=== PATIENT | female | born 1985 | race Caucasian/White ===

== ENCOUNTER 2018-03-20 07:37 | Day surgery (SDC) | payer BC ==
[~2018-03-20] VITALS: Ht 160 cm; Wt 115.6 kg
[2018-03-20] VITALS (8 sets, daily range): BP systolic 108–124; BP diastolic 57–71; PULSE 52–67; TEMP 97.6–98
[2018-03-20] MEDS ORDERED: NORCO 325 MG-51 TAB PO (08:19)
[2018-03-20] MEDS ORDERED: DOXYCYCLINE HY100 MG PO (08:19)
--- NOTE | 2018-03-20 11:40 | NUR ---
TO RM 6 PER CART FROM PACU. ALERT ORIENTED X3 TALKING TO STAFF AND FAMILY. INCISIONS CLEAN DRY INTACT. C/O PAIN 04/20. TEARY EYED. 02 AT 4L PER NC. SATS 99%. RESPIRATIONS EVEN AND NONLABORED. EATING ICE CHIPS.
--- NOTE | 2018-03-20 11:55 | NUR ---
02 SAT 100% ON 4L, DISCONTINUED 02
--- NOTE | 2018-03-20 12:15 | NUR ---
C/O PAIN INCREASED TO 5/10- RECEIVED NORCO 1 TAB. RECEIVED CRACKERS.
--- NOTE | 2018-03-20 12:25 | NUR ---
LEAVING TO RUN ERRANDS.
--- NOTE | 2018-03-20 13:00 | NUR ---
WHEN PATIENT FALLS ASLEEP, O2 SAT DROPPED TO 89%. PLACED PATIENT BACK ON 02 AT 2L.
--- NOTE | 2018-03-20 13:30 | NUR ---
PATIENT MORE AWAKE. UP AMBULATED TO BATHROOM WITH 2 ASSIST. UPON AMBULATING BACK RM, C/O ABDOMINAL CRAMPING THAT COMES AND GOES.
--- NOTE | 2018-03-20 14:00 | NUR ---
RECEIVED DISCHARGE INSTRUCTIONS AND VERBALIZED UNDERSTANDING. DISCONTINUED IV AND INT- CATHETER INTACT.
--- NOTE | 2018-03-20 14:15 | NUR ---
RESTING IN BED WAITING FOR . C/O INTERMITTENT PAIN. OFFERED WARM BLANKET ACROSS ABDOMEN, CHANGE IN POSITION. PATIENT STATED " I WILL BE FINE"
--- NOTE | 2018-03-20 14:56 | NUR ---
PATIENT STATED SHE IS FEELING BETTER AND CRAMPING IS BETTER.
--- NOTE | 2018-03-20 15:34 | NUR ---
DISCHARGED PER WC BY NURSING STAFF TO PRIVATE CAR IN CARE BILL HER .
== END 2018-03-20 15:25 | disposition home or self-care (01) ==
LOC: SDCO 07:37
DX: K80.12 Calculus of gallbladder with acute and chronic cholecystitis without obstruction (principal); J40 Bronchitis, not specified as acute or chronic; Z88.0 Allergy status to penicillin
CPT/HCPCS: J0690; J1100; J1170; J1200; J1885; J2405; J2704; J3010; J7120